=== PATIENT | female | born 1995 | race Caucasian/White ===

== ENCOUNTER 2020-10-08 13:32 | Emergency (ER) | payer OTHER, SELFPAY ==
--- NOTE | ~2020-10-08 | XR_ITS ---
EXAMINATION: XR chest 2V DATE: 10/08/2020 14:13 INDICATION: Shortness of breath. Syncope. Midsternal chest pain. TECHNIQUE: Frontal and lateral views of the chest were obtained. COMPARISON: None. FINDINGS: The chest demonstrates clear lungs without pneumonia, pleural effusion, or pneumothorax. Th e heart size is normal. IMPRESSION: 1. No acute cardiopulmonary disease. Reviewed, dictated and finalized at location A. NCILEMENT CLERK
--- NOTE | 2020-10-08 13:36 | ECG_ITS ---
Measurements Intervals [place] Rate: 95 P: 64 MI: 140 QRS: 72 QRSD: 80 T: -18 QT: 361 QTc: 454 Interpretive Statements SINUS RHYTHM INCOMPLETE RIGHT BUNDLE BRANCH BLOCK BORDERLINE ST-T WAVE ABNORMALITY- ANTEROLAT/INF LEADS BASELINE WANDER- I, II, III, V1-V3 BORDERLINE ECG Electronically Signed On 10-08-2020 14:07:12 [employer] by Eleuterio Go D.O.
[2020-10-08 13:55] VITALS: BP 120/69; PULSE 78; RESP 18; TEMP 36.8; O2SAT 98
[2020-10-08] MEDS: ASPIRIN 81 MG CHEWABLE TABLET 324 MG PO (14:15)
[2020-10-08 14:21] LABS: Basophils Percent Auto 0.6 % (0.2-1.2); Eosinophils Percent Auto 0.6 % (0-4.4); Hemoglobin 13.8 g/dL (12.0-15.0); Immature Granulocyte Absolute 0.02 K/mm3 (0.00-0.031); Immature Granulocyte Percent A 0.3 % (0-0.5); Lymphocytes Absolute Auto 2.26 K/mm3 (0.9-3.2); Lymphocytes Percent Auto 33.9 % (18.3-44.2); Mean Corpuscular HGB Conc 35.4 g/dl (32-36); Mean Corpuscular Hemoglobin 31.8 pg (26-34); Mean Corpuscular Volume 89.9 fl (80-100); Mean Platelet Volume 9.5 fl (7.4-10.4); Monocytes Absolute Auto 0.6 K/mm3 (0.1-0.6); Monocytes Percent Auto 9.1 % (2.6-8.5); Neutrophils Absolute Auto 3.7 K/mm3 (1.3-6.7); Neutrophils Percent Auto 55.5 % (45.5-73.1); Platelet Count Result 273 k/mm3 (150-375); Red Blood Count 4.34 M/mm3 (4.2-5.4); Red Cell Distribution Width 13.2 % (11.5-14.5); White Blood Count 6.7 K/mm3 (4.5-10.0)
[2020-10-08 14:34] LABS: Anion Gap 8 mmol/L (8-16); Blood Urea Nitrogen 15 mg/dL (7-17); Calcium 9.2 mg/dL (8.4-10.2); Carbon Dioxide 24 mmol/L (22-30); Chloride 108 mmol/L (98-107); Estimated CRCL calculation 84 ml/min; Estimated Glomerular Filt Rate > 60; Glucose 88 mg/dL (65-105); Potassium 3.8 mmol/L (3.4-5.0); Sodium 140 mmol/L (137-145)
[2020-10-08 14:35] LABS: Partial Thromboplastin Time 27.8 SECONDS (22.3-36.8)
[2020-10-08 14:46] LABS: Troponin I < 0.012 ng/mL (0.000-0.034)
[2020-10-08 14:58] VITALS: BP 123/79; PULSE 79; RESP 16; O2SAT 100
--- NOTE | 2020-10-08 15:38 | ED.CHESTPAIN ---
HPI - Chest Pain General Chief Complaint: Chest Pain Stated Complaint: CP/SOB Time Seen by Provider: 10/08/20 14:16 Source: patient and old records reviewed Mode of arrival: ambulatory Limitations: no limitations History of Present Illness HPI narrative: Patient is a 25-year-old female who has presented to emergency department noting discomfort of the mid chest that is been constant since July when she had Covid patient notes that she also continues to have mild cough patient on arrival to emergency department denies any vomiting diarrhea patient notes she continues to have difficulty with taste and smell. Patient denies any dyspnea on arrival does not appear distressed. Related Data Home Medications Medication Instructions Recorded Confirmed etonogestrel [Nexplanon] SUBDERMAL 10/08/20 Allergies Allergy/AdvReac Type Severity Reaction Status Date / Time No Known Allergies Allergy Verified 10/08/20 14:05 Review of Systems Review of Systems: All systems reviewed & are unremarkable except as noted in HPI and below PMFSH Past Medical History Medical History (Updated 10/08/20 @ 15:45 by Michael Craven PA-C) Asthma Social History Social History (Updated 10/08/20 @ 15:42 by Michael Craven PA-C) Smoking status: Never smoker Gender identity (if verbalized by the patient): Female Exam Narrative: Exam Narrative: GENERAL: Well-appearing, well-nourished, and in no acute distress. HEAD: Normocephalic, atraumatic. EYES: PERRLA and EOMI. ENT: Nares clear, no rhinorrhea or epistaxis. Mucous membranes moist. CHEST: Clear to auscultation. No respiratory distress. No wheezes rales or rhonchi HEART: Regular rate and rhythm. No murmur heard. Normal peripheral pulses. ABDOMEN: Soft, nontender, nondistended EXTREMITIES: Normal range of motion. No edema. SKIN: Warm, dry, no rash. NEURO: No focal deficits. Alert and oriented x3. PSYCH: Normal mood and affect. Course Course Emergency Course: Patient in the room no distress aware of case findings treatment plan diagnosis ABCs stable intact as well as vital signs no pneumonia no hypoxemia will be referred to primary care for further evaluation of her continued symptoms Vital Signs Vital signs: Vital Signs Temperature 98.3 F 10/08/20 13:55 Pulse Rate 78 10/08/20 13:55 Respiratory Rate 18 10/08/20 13:55 Blood Pressure 120/69 10/08/20 13:55 Pulse Oximetry 98 10/08/20 13:55 Temperature 98.3 F 10/08/20 13:55 Pulse Rate 79 10/08/20 14:58 Respiratory Rate 16 10/08/20 14:58 Blood Pressure 123/79 10/08/20 14:58 Pulse Oximetry 100 10/08/20 14:58 MDM - Chest Pain MDM Narrative Medical decision making narrative: Patients EKGs and labs are without significant high risk changes. Cardiac risk factors were reviewed. Patient is felt likely to be low risk for ACS and reasonable for further risk stratification testing as an outpatient. Pain was not sudden or maximal in onset without tearing or ripping. quality. No other signs or symptoms to suggest aortic dissection. A low-risk Wells criteria is noted. PE is felt to be unlikely. No pneumonia seen on evaluation today. Patient is felt to be reasonable for continued evaluation as an outpatient. Lab Data Result diagrams: 10/08/20 14:08 10/08/20 14:08 Labs: Lab Results 10/08/20 10/08/20 10/08/20 Range/Units 14:08 14:08 14:08 WBC 6.7 (4.5-10.0) K/mm3 RBC 4.34 (4.2-5.4) M/mm3 Hgb 13.8 (12.0-15.0) g/dL Hct 39.0 (37.0-47.0) % MCV 89.9 (80-100) fl MCH 31.8 (26-34) pg MCHC 35.4 (32-36) g/dl RDW 13.2 (11.5-14.5) % Plt Count 273 (150-375) k/mm3 MPV 9.5 (7.4-10.4) fl Immature Gran % (Auto) 0.3 (0-0.5) % Neut % (Auto) 55.5 (45.5-73.1) % Lymph % (Auto) 33.9 (18.3-44.2) % [place] % (Auto) 9.1 H (2.6-8.5) % Eos % (Auto) 0.6 (0-4.4) % Baso % (Auto) 0.6 (0.2-1.2) % Lymph # (Auto) 2.26
[2020-10-08 16:02] VITALS: BP 112/63; PULSE 85; RESP 16; O2SAT 100
== END 2020-10-08 16:04 | disposition home or self-care (01) ==
PROVIDERS: Emergency Provider Emergency Medicine; PCP Family Medicine
DX: R07.89 Other chest pain (principal); Z86.16 Personal history of COVID-19; J45.909 Unspecified asthma, uncomplicated; I45.10 Unspecified right bundle-branch block; R94.31 Abnormal electrocardiogram [ECG] [EKG]
CPT/HCPCS: 36415; 71046; 80048; 84484; 85025; 85610; 85730; 93005; 99284; A9270

== ENCOUNTER → 2020-10-31 07:39 | Outpatient (CLI) | payer OTHER, SELFPAY ==
[2020-11-01 00:19] LABS: SARS-CoV-2 RNA PCR Negative
== END ==
PROVIDERS: PCP Internal Medicine; Visit Provider Internal Medicine
DX: Z20.822 Contact with and (suspected) exposure to COVID-19 (principal); R68.89 Other general symptoms and signs
CPT/HCPCS: C9803; U0003; U0005

== ENCOUNTER 2020-12-24 17:18 | Outpatient (CLI) | payer OTHER, SELFPAY ==
--- NOTE | ~2020-12-24 | XR_ITS ---
EXAMINATION: XR chest 2V DATE: 12/24/2020 17:38 INDICATION: Chest tightness. Shortness of breath. TECHNIQUE: Frontal and lateral views of the chest were obtained. COMPARISON: Chest 2 views 10/08/20 FINDINGS: The chest demonstrates clear lungs without pneumonia, pleural effusion, or pneumothorax. Th e heart size is normal. IMPRESSION: 1. No acute cardiopulmonary disease. Reviewed, dictated and finalized at location A.
== END 2020-12-24 17:19 | disposition home or self-care (01) ==
PROVIDERS: PCP Internal Medicine; Visit Provider Internal Medicine
DX: R07.89 Other chest pain (principal)
CPT/HCPCS: 71046

== ENCOUNTER 2021-11-19 16:02 | Outpatient (CLI) | payer OTHER, SELFPAY ==
[2021-11-19 16:43] LABS: Alanine Aminotransferase 14 U/L (4-35); Albumin Level 4.5 g/dL (3.5-5.1); Alkaline Phosphatase 59 U/L (38-126); Anion Gap 9 mmol/L (8-16); Aspartate Amino Transferase 19 U/L (14-36); Bilirubin,Total 0.6 mg/dL (0.2-1.3); Blood Urea Nitrogen 13 mg/dL (7-17); Calcium 9.1 mg/dL (8.4-10.2); Carbon Dioxide 24 mmol/L (22-30); Chloride 106 mmol/L (98-107); Cholesterol 118 mg/dL (0-200); Estimated Glomerular Filt Rate > 60; Glucose 83 mg/dL (65-110); HDL Direct 54 mg/dL; Potassium 4.2 mmol/L (3.4-5.0); Sodium 139 mmol/L (137-145); Triglycerides 63 mg/dL (<150)
[2021-11-19 16:54] LABS: LDL Cholesterol Direct 48 mg/dL
== END 2021-11-19 16:03 | disposition home or self-care (01) ==
LOC: ANHLAB 16:04
PROVIDERS: PCP Internal Medicine; Visit Provider Internal Medicine
DX: Z13.6 Encounter for screening for cardiovascular disorders (principal); Z13.220 Encounter for screening for lipoid disorders; G47.00 Insomnia, unspecified
CPT/HCPCS: 36415; 80053; 80061; 84443

== ENCOUNTER 2022-04-27 16:14 | Emergency (ER) | payer OTHER, SELFPAY ==
--- NOTE | ~2022-04-27 | XR_ITS ---
XR foot RT min 3V DATE: 04/27/2022 16:33 INDICATION: Right medial foot pain following a fall 2 days ago TECHNIQUE: 4 views COMPARISON: None FINDINGS: No fracture or dislocation, periosteal reaction or bone destruction. No erosive change. IMPRESSION: Negative Reviewed, dictated and finalized at location B. IMPRESSION: Negative
[2022-04-27 16:22] VITALS: BP 134/66; PULSE 83; RESP 16; TEMP 36.6; O2SAT 100
--- NOTE | 2022-04-27 16:42 | ED.LOWEXIN ---
HPI - Extremity Injury (Lower) General Chief Complaint: Extremity Injury, Lower Stated Complaint: right foot pain Time Seen by Provider: 04/27/22 16:43 Source: patient Mode of arrival: ambulatory Limitations: no limitations History of Present Illness HPI Narrative: 27 yo F presents with pain to R foot for 2 days. Pt states that she fell while running 2 days ago. Rolled at ankle. Was able to get up and walk home. Was sore the day after. Today pain worse with swelling.. ambulatory with limp. States walking on outside of foot to decrease pain . Taking ibuprofen to treat pain. All systems reviewed and negative except as noted above. Related Data Home Medications Medication Instructions Recorded Confirmed etonogestrel 68 mg subdermal subdermal 10/08/20 11/23/21 implant (Nexplanon) albuterol sulfate 90 mcg/actuation 2 inh inhalation Q6H PRN 10/19/20 11/23/21 breath activated powder inhaler Allergies Allergy/AdvReac Type Severity Reaction Status Date / Time coconut Allergy Mild hives Verified 11/23/21 07:59 Review of Systems Review of Systems: CONSTITUTIONAL: Denies fever, chills, or sweats. EYES: Denies visual changes, redness, or discharge. ENT: Denies rhinorrhea, congestion, sore throat, or otalgia. CARDIOVASCULAR: Denies chest pain, palpitations, or edema. RESPIRATORY: Denies cough or dyspnea. GASTROINTESTINAL: Denies abdominal pain, nausea, vomiting, or diarrhea. GENITOURINARY: Denies dysuria or hematuria. SKIN: Denies rash or itching. MUSCULOSKELETAL: Denies back pain, joint pain, or myalgia. Reports pain to medial aspect right foot. NEUROLOGIC: Denies headache, numbness, or weakness. PSYCHIATRIC: Denies anxiety or depression. All other systems reviewed are negative, except as documented in HPI. [facility] Past Medical History Medical History Asthma Difficulty breathing Gastroesophageal reflux disease Heartburn Family History Family History (Updated 11/23/21 @ 07:59 by Cecilia Faye MA) Mother HPV in female Social History Social History (Updated 11/23/21 @ 07:58 by Cecilia Faye MA) Smoking status: Never smoker Second hand tobacco smoke exposure: No Alcohol intake: current Drinks per week: 3 Substance use: never Gender identity (if verbalized by the patient): Female Comments At time of signature, agree with nursing past medical, surgical, social and family history. There is no relevant family history pertinent to the presenting complaint. Exam Narrative: GENERAL: This is a well-nourished, well-developed patient, in no apparent distress. HEAD: normocephalic, atraumatic. EYES: PERRL. Sclera clear/white. Vision is grossly intact. EARS: External ears normal NOSE: External nose normal NECK: Neck supple, non-tender without lymphadenopathy, masses or thyromegaly. CARDIOVASCULAR: Regular rate and rhythm without murmurs, gallops, or rubs. RESPIRATORY: Clear to auscultation. Breath sounds equal bilaterally. No wheezes, rales, or rhonchi. SKIN: warm, Dry, intact with no suspicious lesions or rash, good texture and turgor. NEURO: awake, alert, and oriented to person, place and time. There were no obvious focal neurologic abnormalities. EXTREMITIES: Tenderness to medial aspect R foot with soft tissue swelling. Course Course Level of Care: Express Care Visit Vital Signs Vital signs: Vital Signs Temperature 36.6 C 04/27/22 16:22 Pulse Rate 83 04/27/22 16:22 Respiratory Rate 16 04/27/22 16:22 Blood Pressure 134/66 04/27/22 16:22 Pulse Oximetry 100 04/27/22 16:22 Oxygen Delivery Room Air 04/27/22 16:22 Temperature 36.6 C 04/27/22 16:22 Pulse Rate 83 04/27/22 16:22 Respiratory Rate 16 04/27/22 16:22 Blood Pressure 134/66 04/27/22 16:22 Pulse Oximetry 100 04/27/22 16:22 Oxygen Delivery Room Air 04/27/22 16:22 reviewed MDM - Extremity Injury (Lower) MDM Narrative M
== END 2022-04-27 16:53 | disposition home or self-care (01) ==
PROVIDERS: Emergency Provider Nurse Practitioner Family; PCP Internal Medicine
DX: S93.601A Unspecified sprain of right foot, initial encounter (principal); W19.XXXA Unspecified fall, initial encounter; Y93.02 Activity, running; J45.909 Unspecified asthma, uncomplicated; K21.9 Gastro-esophageal reflux disease without esophagitis; R12 Heartburn
CPT/HCPCS: 73630; 99213; G0463

== ENCOUNTER 2025-08-12 16:10 | Outpatient (CLI) | payer BC, SELFPAY ==
--- NOTE | ~2025-08-12 | US_ITS ---
EXAM/PROCEDURE: US pelvic complete w TV HISTORY: R10.2 - Pelvic and perineal pain COMPARISON: None available. LMP: 08/05/2025 TECHNIQUE: Endovaginal pelvic ultrasound FINDINGS: The uterus measures 6.3 x 3.1 x 3.5 cm with mild fibroid appearing changes but otherwise normal appearance. Endometrial stripe: 3.5 mm Right ovary: 2.2 x 1.1 x 1.8 cm Left ovary: 1.9 x 1.5 x 2.0 cm. Both ovaries appear normal in echotexture and vascular flow. No free fluid is seen. IMPRESSION: Mild fibroid changes of the uterus; otherwise uterus and ovaries within normal limits. Reviewed, dictated and finalized at location A. MAKER IMPRESSION: Mild fibroid changes of the uterus; otherwise uterus and ovaries wi thin normal limits.
== END 2025-08-12 16:11 | disposition home or self-care (01) ==
PROVIDERS: PCP Nurse Practitioner Family; Visit Provider Obstetrics & Gynecology
DX: R10.20 Pelvic and perineal pain unspecified side (principal); D25.9 Leiomyoma of uterus, unspecified
CPT/HCPCS: 76830; 76856

== ENCOUNTER 2025-09-04 13:48 | Emergency (ER) | payer BC, SELFPAY ==
--- NOTE | 2025-09-04 13:56 | ED_ITS ---
HPI - Female Genitourinary General Chief complaint: Urogenital-Female Stated complaint: Pelvic Pain Time Seen by Provider: 09/04/25 13:51 Source: patient Mode of arrival: ambulatory Limitations: no limitations History of Present Illness HPI Narrative: Patient is a 30-year-old female presents with 2 days of left lower quadrant and today it worsened. Patient was seen by OBGYN 08/26 and told she has fibroids ovaries were normal. Patient called advanced practice registered nurse today and was told to go to the emergency department. Patient states pain is constant and has caused nausea and vomiting x1. Patient switch from Nexplanon to oral control in May. With left cycle being 08/14. Patient has taken 400 mg ibuprofen and marijuana for pain. MD elicited complaint: dysuria Related Data Home Medications ?Medication ?Instructions ?Recorded ?Confirmed ?Last Taken ?Type glucosamine-chondroitin 250 mg-200 2 tablet PO TID 02/19/25 Unknown History mg tablet multivitamin 1 tablet PO DAILY 01/09/24 0 02/19/25 Unknown History Allergies Allergy/AdvReac Type Severity Reaction Status Date / Time coconut Allergy Mild hives Verified 09/04/25 14:02 covid pfizer Allergy Hives Uncoded 08/26/25 08:14 Review of Systems Review of Systems: All systems reviewed & are unremarkable except as noted in HPI and below Constitutional: Constitutional: Denies chills, Denies fever(s), Denies headache(s), Denies malaise and Denies weakness Eyes: Eyes: Denies change in vision, Denies eye discharge and Denies irrit ation ENT: Denies otalgia, Denies headache(s), Denies nasal congestion, Denies nasal discharge, Denies sinus pain and Denies sore throat Cardiovascular: Cardiovascular: Denies chest pain, Denies edema, Denies palpitations and Denies dyspnea Respiratory: Respiratory: Denies cough and Denies dyspnea Gastrointestinal: Gastrointestinal: Reports abdominal pain, Denies diarrhea, Reports nausea and Reports vomiting Genitourinary: Genitourinary: Denies hematuria, Denies nocturia, Denies dysuria, Reports pelvic pain, Denies flank pain and Denies urinary urgency Musculoskeletal: Musculoskeletal: Denies back pain and Denies numbness Integumentary/Breasts: Skin/Breast: Denies pruritus and Denies rash Neurologic: Denies headache(s), Denies numbness and Denies weakness Psychiatric: Psychiatric: Reports no additional psychiatric complaints Endocrine: Endocrine: Denies palpitations PMFSH Past Medical History Medical History Gastroesophageal reflux disease Heartburn Difficulty breathing Asthma Surgical History Surgical History [place] teeth removed Family History Family History Mother HPV in female Breast cancer, Onset Age: 54 Ovarian cancer Cervical cancer Depression Grandparent Breast cancer Skin cancer Alcoholism Diabetes mellitus Father Asthma Other Breast cancer M AUNT Social History Social History Smoking status: Never smoker Second hand tobacco smoke exposure: No Alcohol intake: former Substance use: current Substance use type: marijuana Other substance usage details: edibbles every once in a while to help with anxiety Lack of Transportation: No Lack of Food: Never True Current Housing: I Have Housing Concerned About Future Housing: No Difficulty Paying Gas/Electric Bills: No Difficulty Paying for Meds: No Currently Unemployed: No Gender identity (if verbalized by the patient): Female Comments At time of signature, agree with nursing past medical, surgical, social and family history. There is no relevant family history pertinent to the presenting complaint. Exam Const: General: cooperative, healthy appearing, comfortable, no acute distress and well nourished Nutritional Appearance: well nourished Orientation/consciousness: patient oriented x3 HENMT: Head: normocephalic and atraumatic Ears: external ears normal Face/Nose/Sinus: Normal external nose present, Normal nares present and normal facial exam Face and sinus: normal facial exam Eyes: General: appearance normal, both eyes and all related structures Pupils: Equal, round and reactive pupils present EOM: EOMs intact bilaterally Neck: Neck: normal visual inspection, full ROM and supple Chest: Chest palpation & inspection: normal inspection of the chest Resp: Effort & Inspection: normal respiratory effort and able to speak in complete sentences Cardio: Rate: regular rate Rhythm: regular rhythm GI: Inspection: normal to inspection GI Palp: Yes abdominal tenderness, Yes Soft to palpation, Yes Tenderness to palpation present (GI), No Guarding due to palpation present (GI) and Yes Rebound tenderness present (LLQ) : General: Yes no CVA tenderness Back/Spine/Pelvis: Back: no CVA tenderness Skin: General skin exam: normal color and no rashes or lesions noted Neuro: General: patient oriented x3 and moves all extremities Cranial nerves: Yes Equal, round and reactive pupils present Extrem: General: normal to inspection and full ROM Psych: Appearance: grossly normal and well kempt Course Course Emergency Course: patient is being transferred to [facility] for further workup and evaluation. Patient may need labs and imaging. Portions of this record may have been created with voice recognition software Level of Care: Express Care Visit Vital Signs Vital signs: Vital Signs Temperature 36.8 C 09/04/25 14:10 Pulse Rate 84 09/04/25 14:10 Respiratory Rate 18 09/04/25 14:10 Blood Pressure 122/83 09/04/25 14:10 Pulse Oximetry 99 09/04/25 14:10 Oxygen Delivery Room Air 09/04/25 14:10 Temperature 36.8 C 09/04/25 14:10 Pulse Rate 84 09/04/25 14:10 Respiratory Rate 18 09/04/25 14:10 Blood Pressure 122/83 09/04/25 14:10 Pulse Oximetry 99 09/04/25 14:10 Oxygen Delivery Room Air 09/04/25 14:10 Transfer Transfered to: [place] Transportation: Other (private auto) Transfer rationale: patient is being transferred to [facility] for further workup and evaluation. Patient may need labs and imaging. Accepting physician: Arminda SPENCER [facility] MDM Narrative Medical decision making narrative: patient is being transferred to [facility] for further workup and evaluation. Patient may need labs and imaging. Differential Diagnosis Differential Diagnosis: Differential diagnostic considerations for acute abdominal pain?include surgical abdominal etiology, ischemic bowel, inflammatory bowel disease, gastritis, PUD, gastroenteritis, cardiac etiology, appendicitis, diverticulitis, bowel obstruction, kidney stone, pyelonephritis, abdominal aortic aneurysm, pancreatitis, constipation, endometriosis. Medical Records I have reviewed the following patient records and this information was taken into consideration when formulating the assessment and plan.: previous clinic visits Discharge Plan Discharge Clinical Impression: Abdominal pain Patient Disposition: Acute Care Hospital Condition: Stable Patient Language: Georgian Prescriptions: No Action L norgest/e.estradiol-e.estrad 0.15 mg-30 mcg (84)/10 mcg (7) tablets,dose pack,3 month See Rx Instructions PO .COMPLEX Qty: 182 0RF Rx Instructions: take 1 tablet daily following the order on blister card(s) PO multivitamin Tablet 1 tablet PO DAILY glucosamine-chondroitin 250-200 mg tablet 2 tablet PO TID Rx Instructions: give after food/meal albuterol sulfate 90 mcg/actuation HFA aerosol inhaler 2 puff inhalation Q4H PRN (Reason: shortness of breath or wheezing) Qty: 8.5 0RF paroxetine HCl [Paxil] 10 mg tablet 10 mg PO DAILY Qty: 90 1RF Follow-up/Referrals: Baldo Quinones MD [Primary Care Provider, Family Practice] Time of Disposition: 14:35
[2025-09-04 14:10] VITALS: BP 122/83; PULSE 84; RESP 18; TEMP 36.8; O2SAT 99
== END 2025-09-04 14:32 | disposition short-term general hospital (02) ==
PROVIDERS: Emergency Provider Nurse Practitioner Family; PCP Family Medicine
DX: R10.32 Left lower quadrant pain (principal); K21.9 Gastro-esophageal reflux disease without esophagitis; J45.909 Unspecified asthma, uncomplicated; F12.90 Cannabis use, unspecified, uncomplicated
CPT/HCPCS: 99212; G0463

== ENCOUNTER 2025-09-04 15:06 | Emergency (ER) | payer BC, SELFPAY ==
--- NOTE | ~2025-09-04 | CT_ITS ---
EXAMINATION: CT abdomen pelvis w con DATE: 09/04/2025 17:06 INDICATION: Left lower quadrant abdominal pain. Nausea and vomiting. TECHNIQUE: Computed tomography (CT) of the abdomen and pelvis was performed 100 cc of intravenous contrast. Automated exposure control and iterative reconstruction technique were employed. The dose-length product was 404.16 mGy-cm. COMPARISON: Ultrasound pelvis dated 08/12/2025 FINDINGS: No acute findings of lung bases. No focal lesions of liver and spleen. Gallbladder, pancreas and kidneys do not show acute findings. No evidence of small bowel obstruction. Appendix is normal in size. Few diverticula of sigmoid colon. Anteverted normal size uterus. No adnexal mass or fluid collections. No definite mass related to the uterus. No acute findings of lumbar spine and pelvic bones. IMPRESSION: 1. No acute findings in the upper abdomen and pelvis. 2. Other findings are described above. Reviewed, dictated and finalized at location T. OTYPER
--- NOTE | ~2025-09-04 | US_ITS ---
EXAMINATION: US pelvic complete w TV, 09/04/2025 16:30 [employer]IP [employer] HISTORY: LLQ pain, r/o torsion Comparison: None Technique: Royal-scale and color Doppler images were obtained. Findings: Uterus: Uterus anteverted 7.2 x 3.3 x 5.4 cm. . Endometrium 3 mm. Right Ovary:Right ovary 2.8 x 1.6 x 1.9 cm, no adnexal mass, normal flow. Left Ovary: Left ovary 2.7 x 1.8 x 1.6 cm, no adnexal mass, normal flow. Free Fluid: None Impression: No acute process identified. Reviewed, dictated and finalized at location P. STAND LOADER Impression: No acute process identified.
[2025-09-04 15:13] VITALS: BP 116/69; PULSE 83; RESP 18; TEMP 36.6; O2SAT 99
[2025-09-04 16:03] LABS: BEDSIDEPREGUCG Negative (Negative)
[2025-09-04 16:05] LABS: Add Urine Microscopic? NO; Appearance Urine Clear (Clear); Glucose Urine UA Negative (Negative); Hematocrit 42.9 % (37.0-47.0); Hemoglobin 14.8 g/dL (12.0-15.0); Immature Granulocyte Percent A 0.5 % (0-0.5); Leukocyte Esterase Ur Negative LEU/UL (Negative); Lymphocytes Absolute Auto 2.47 K/mm3 (0.9-3.2); Mean Corpuscular HGB Conc 34.5 g/dl (32-36); Mean Corpuscular Hemoglobin 30.5 pg (26-34); Mean Corpuscular Volume 88.5 fl (80-100); Nitrate Urine Negative (Negative); Nucleated Red Blood Cells Absolute Auto 0.000 K/mm3 (0.0-0.012); Nucleated Red Blood Cells Perc 0.0 % (0.0-0.2); Platelet Count Result 366 k/mm3 (150-375); Red Blood Count 4.85 M/mm3 (4.2-5.4); Specific Grav Ur 1.021 (1.001-1.035); White Blood Count 8.8 K/mm3 (4.5-10.0)
[2025-09-04 16:14] LABS: Alanine Aminotransferase 37 U/L (6-35); Albumin Level 4.5 g/dL (3.5-5.1); Alkaline Phosphatase 57 U/L (38-126); Anion Gap 6 mmol/L (4-12); Aspartate Amino Transferase 31 U/L (14-36); Bilirubin,Total 0.6 mg/dL (0.2-1.3); Blood Urea Nitrogen 12 mg/dL (7-17); Calcium 9.4 mg/dL (8.4-10.2); Carbon Dioxide 25 mmol/L (22-30); Chloride 105 mmol/L (98-107); Estimated CRCL calculation 76 ml/min; Estimated Glomerular Filt Rate > 60; Glucose 137 mg/dL (65-110); Lipase 75 U/L (23-300); Potassium 4.0 mmol/L (3.4-5.0); Sodium 136 mmol/L (137-145); Total Protein 7.9 g/dL (6.3-8.2)
--- NOTE | 2025-09-04 16:56 | ED_ITS ---
HPI - Abdominal Pain General Chief Complaint: Abdominal Pain Stated Complaint: Abd pain since Monday Time Seen by Provider: 09/04/25 15:39 Source: patient Mode of arrival: ambulatory Limitations: no limitations History of Present Illness HPI narrative: Patient is a 30-year-old female who presents the ED with report of left lower quadrant abdominal pain. Patient reports pain has been persistent since Monday. Denies radiation of pain. Has tried taking Tylenol and ibuprofen without improvement. Pain is worse with movement. Went to urgent care today and was referred to the ED for further evaluation. Does report nausea vomiting today and 1 episode of diarrhea. Denies fever, urinary complaints. Denies history of ovarian cyst. States she recently had evaluation by OBGYN and was told she had fibroids. Related Data Home Medications ?Medication ?Instructions ?Recorded ?Confirmed ?Last Taken ?Type glucosamine-chondroitin 250 mg-200 2 tablet PO TID 02/19/25 Unknown History mg tablet multivitamin 1 tablet PO DAILY 01/09/24 0 02/19/25 Unknown History Allergies Allergy/AdvReac Type Severity Reaction Status Date / Time coconut Allergy Mild hives Verified 09/04/25 14:02 covid pfizer Allergy Hives Uncoded 08/26/25 08:14 Review of Systems 2 Review of Systems: All systems reviewed & are unremarkable except as noted in HPI. All systems reviewed & are unremarkable except as noted in HPI and below PMFSH Past Medical History Medical History Gastroesophageal reflux disease Heartburn Difficulty breathing Asthma Surgical History Surgical History [place] teeth removed Family History Family History Mother HPV in female Breast cancer, Onset Age: 54 Ovarian cancer Cervical cancer Depression Grandparent Breast cancer Skin cancer Alcoholism Diabetes mellitus Father Asthma Other Breast cancer M AUNT Social History Social History Smoking status: Never smoker Second hand tobacco smoke exposure: No Alcohol intake: former Substance use: current Substance use type: marijuana Other substance usage details: edibbles every once in a while to help with anxiety Lack of Transportation: No Lack of Food: Never True Current Housing: I Have Housing Concerned About Future Housing: No Difficulty Paying Gas/Electric Bills: No Difficulty Paying for Meds: No Currently Unemployed: No Gender identity (if verbalized by the patient): Female Exam 2 Narrative: GENERAL: Well appearing, well-nourished, non-toxic, in no acute distress. HEAD: Normocephalic, atraumatic. RESPIRATORY: Airway patent, respirations nonlabored. Clear to auscultation bilaterally, no rales, rhonchi, wheezing. CARDIOVASCULAR: Regular rate and rhythm without murmurs, rubs, or gallops. ABDOMINAL: Soft, focal TTP in LLQ, no rebound, nondistended. Normoactive BS. MUSCULOSKELETAL: Moves all extremities. No gross deformities. SKIN: Warm, dry, normal color. NEURO: A&O X3. Speech clear. Cranial nerves II-XII grossly intact. Steady gait. No ataxic movements. PSYCHIATRIC: Appropriate mood and affect. Normal interaction. Course Vital Signs Vital signs: Vital Signs Temperature 97.8 F 09/04/25 15:13 Pulse Rate 83 09/04/25 15:13 Respiratory Rate 18 09/04/25 15:13 Blood Pressure 116/69 09/04/25 15:13 Pulse Oximetry 99 09/04/25 15:13 Oxygen Delivery Room Air 09/04/25 15:13 Temperature 97.8 F 09/04/25 15:13 Pulse Rate 68 09/04/25 18:47 Respiratory Rate 14 09/04/25 18:47 Blood Pressure 124/86 09/04/25 18:47 Pulse Oximetry 100 09/04/25 18:47 Oxygen Delivery Room Air 09/04/25 15:13 [facility] Narrative Medical decision making narrative: Patient presented to ED with left lower abdominal pain for the past couple of days. Vital signs stable upon arrival. Patient in no acute ro distress. Declined pain medication. Laboratory studies are grossly unremarkable. UA without evidence of infection. Urine negative. CT scan of abdomen/pelvis was obtained, no acute findings. Does show a few diverticula of the sigmoid colon but no evidence of diverticulitis. Pelvic US obtained and also without acute findings. No evidence of ovarian torsion or ovarian cyst. Discussed lab and imaging findings, overall reassuring workup with patient. Discussed possibility of musculoskeletal etiology vs gastroenteritis picture. Feel patient is safe for discharge home at this time, will prescribe Zofran, Bentyl for home use, advised to continue Tylenol/ibuprofen. She is in agreement with plan. Discussed strict return precautions. Patient voiced understanding. Discharged in stable condition. Differential Diagnosis Differential Diagnosis: ovarian cyst, ovarian torsion, appendicitis, diverticulitis, bowel obstruction, constipation, UTI Medical Records I have reviewed the following patient records and this information was taken into consideration when formulating the assessment and plan.: previous labs, previous ER visits, previous hospitalizations and previous clinic visits Lab Data MDM Lab Attestation statement: I personally reviewed the patient's lab results. 09/04/25 15:55 09/04/25 15:55 Labs: Lab Results 09/04/25 09/04/25 Range/Units 15:55 16:00 WBC 8.8 (4.5-10.0) K/mm3 RBC 4.85 (4.2-5.4) M/mm3 Hgb 14.8 (12.0-15.0) g/dL Hct 42.9 (37.0-47.0) % MCV 88.5 (80-100) fl MCH 30.5 (26-34) pg MCHC 34.5 (32-36) g/dl RDW 13.2 (11.5-14.5) % Plt Count 366 (150-375) k/mm3 MPV 9.2 (7.4-10.4) fl Immature Gran % (Auto) 0.5 (0-0.5) % Neut % (Auto) 65.1 (45.5-73.1) % Lymph % (Auto) 28.2 (18.3-44.2) % George % (Auto) 4.8 (2.6-8.5) % Eos % (Auto) 0.9 (0-4.4) % Baso % (Auto) 0.5 (0.2-1.2) % Lymph # (Auto) 2.47 (0.9-3.2) K/mm3 George # (Auto) 0.4 (0.1-0.6) K/mm3 Eos # (Auto) 0.1 (0-0.3) K/mm3 Baso # (Auto) 0.0 (0.0-0.1) K/mm3 Abs Immat Gran (auto) 0.04 H (0.00-0.031) K/mm3 Absolute Neuts (auto) 5.7 (1.3-6.7) K/mm3 Absolute Nucleated RBC 0.000 (0.0-0.012) K/mm3 Nucleated RBC % 0.0 (0.0-0.2) % Sodium 136 L (137-145) mmol/L Potassium 4.0 (3.4-5.0) mmol/L Chloride 105 (98-107) mmol/L Carbon Dioxide 25 (22-30) mmol/L Anion Gap 6 (4-12) mmol/L BUN 12 (7-17) mg/dL Creatinine 0.86 (0.7-1.0) mg/dL Estim Creat Clear Calc 76 ml/min Estimated GFR > 60 (59 - ) Glucose 137 H (65-110) mg/dL Calcium 9.4 (8.4-10.2) mg/dL Total Bilirubin 0.6 (0.2-1.3) mg/dL AST 31 (14-36) U/L ALT 37 H (6-35) U/L Alkaline Phosphatase 57 (38-126) U/L Total Protein 7.9 (6.3-8.2) g/dL Albumin 4.5 (3.5-5.1) g/dL Lipase 75 (23-300) U/L Urine Color Yellow (Yellow) Urine Appearance Clear (Clear) Urine pH 6.0 (5.0-9.0) Ur Specific [place] 1.021 (1.001-1.035) Urine Protein Negative (Negative) mg/dL Urine Glucose (UA) Negative (Negative) mg/dL Urine Ketones 2+ H (Negative) mg/dL Ur Blood (Man) Negative (Negative) Urine Nitrate Negative (Negative) Urine Bilirubin Negative (Negative) Urine Urobilinogen 0.2 (<2.0) mg/dL Leukocyte Esterase Rfl Negative (Negative) REGIS/UL POC Urine HCG, Qual Negative (Negative) Imaging Data Attestation: I personally reviewed and interpreted this imaging study as follows: Radiologist's impression: ITS Impressions Abdomen/Pelvis CT 09/04/25 17:08 IMPRESSION: 1. No acute findings in the upper abdomen and pelvis. 2. Other findings are described above. Pelvic/Transvag US 09/04/25 17:28 Impression: No acute process identified. Discharge Plan Discharge Clinical Impression: Left lower quadrant abdominal pain Nausea and vomiting Qualifiers: Vomiting type: unspecified Qualified Code(s): R11.2 - Nausea with vomiting, unspecified Patient Disposition: Home Condition: Stable Instructions: Antibiotic Form, Gastroenteritis (ED), Abdominal Pain (ED) Additional Instructions: Your workup here was reassuring. Continue Tylenol, ibuprofen, Bentyl as needed for further abdominal discomfort. You may try heating pad to area of pain. Utilize zofran as needed for further nausea. Increase fluid intake. Recommend electrolyte rich fluids, gatorade, pedialyte, body armour. Recommend clear liquids or bland diet until symptoms improve, such as bananas, rice, applesauce, toast, or crackers. Follow up with your primary care doctor for further evaluation. Return to the ED if you experience worsening or severe symptoms, unable to keep down food or drink, severe pain, fevers, rectal bleeding, vomiting blood, or any other symptoms of concern. Patient Language: Lithuanian Prescriptions: New dicyclomine 20 mg tablet 20 mg PO TID PRN (Reason: abdominal pain) Qty: 15 0RF ondansetron 4 mg tablet,disintegrating 4 mg PO Q8H PRN (Reason: nausea and vomiting) Qty: 15 0RF No Action L norgest/e.estradiol-e.estrad 0.15 mg-30 mcg (84)/10 mcg (7) tablets,dose pack,3 month See Rx Instructions PO .COMPLEX Qty: 182 0RF Rx Instructions: take 1 tablet daily following the order on blister card(s) PO multivitamin Tablet 1 tablet PO DAILY glucosamine-chondroitin 250-200 mg tablet 2 tablet PO TID Rx Instructions: give after food/meal albuterol sulfate 90 mcg/actuation HFA aerosol inhaler 2 puff inhalation Q4H PRN (Reason: shortness of breath or wheezing) Qty: 8.5 0RF paroxetine HCl [Paxil] 10 mg tablet 10 mg PO DAILY Qty: 90 1RF Follow-up/Referrals: Baldo Quinones MD [Primary Care Provider, Family Practice] Time of Disposition: 18:15
--- NOTE | 2025-09-04 16:57 | PC.NURSE ---
patient to ct at this time
[2025-09-04] MEDS: SODIUM CHLORIDE 0.9% IV 1,000 ML 999 ML IV CONT (17:29)
[2025-09-04 18:47] VITALS: BP 124/86; PULSE 68; RESP 14; O2SAT 100
== END 2025-09-04 18:48 | disposition home or self-care (01) ==
PROVIDERS: Emergency Medicine; Emergency Provider Physician Assistant; PCP Family Medicine
DX: R10.32 Left lower quadrant pain (principal); R11.2 Nausea with vomiting, unspecified
CPT/HCPCS: 36415; 74177; 76830; 76856; 80053; 81003; 81025; 83690; 85025; 96360; 99284; J7030; Q9967